=== PATIENT | male | born 1945 | race Caucasian/White ===

== ENCOUNTER 2017-09-03 07:23 | Day surgery (SDC) | payer MEDICARE, BC, SELFPAY ==
[2017-09-03 07:55] VITALS: BMI 26.1
[2017-09-03 08:02] VITALS: BP 145/85; PULSE 60; RESP 15; TEMP 36.1; O2SAT 99
[2017-09-03] MEDS: SODIUM CHLORIDE 0.9% 1,000 ML 200 ML IV (08:09)
--- NOTE | 2017-09-03 08:28 | PM.PREOP ---
Pre-operative Note Interval Note Pre-op Check: Yes History & Physical Reviewed by Physician and Yes Exam Performed Changes: No H&P completed within 30 days and has changed as indicated here:: Patient again seen and examined today. History physical examination as documented August 27, 2017 has not changed. Proceed with colonoscopy today as planned. ASA Class (for procedural sedation): II
[2017-09-03] MEDS: MIDAZOLAM 5 MG/5 ML VIAL IV (08:54)
[2017-09-03] MEDS: fentaNYL 250 MCG/5 ML INJ IV (08:55)
--- NOTE | 2017-09-03 09:07 | PM.OP.ENDO ---
Operative Date/Time/Diagnoses Date of procedure: 09/03/17 Time of procedure: 09:07 Pre-op diagnosis: Change in bowel habits Post-op diagnosis: other (Normal colon and rectum) Procedure & Clinicians Study performed: 1. Sedation per surgeon 2. Colonoscopy with random cold forceps biopsies Same procedure as scheduled: Yes Indications: 72-year-old male with recent change in bowel habits. Because of the possibility of colitis or colorectal neoplasia colonoscopy was recommended. Surgeon: Alton Douglas Procedure Notes SCOAP/Timeout: Yes Procedure in detail: After obtaining informed consent, the patient was brought to the GI suite and placed in the left lateral decubitus position on the examination table. After placement of appropriate monitors, the patient was given incremental doses of Versed and Fentanyl until an appropriate level of sedation was achieved. A time out was held per SCOAP protocol. A digital rectal examination was performed and did not reveal any masses or obstructing lesions. The colonoscope was gently passed into the patient's anus and the entire colon navigated to the level of the cecum with minimal difficulty. Terminal ileum was intubated and noted to be grossly normal. Once in the cecum, the scope was withdrawn being sure to go before and beyond all mucosal folds and prominences and get an excellent examination. The findings are noted above. At the level of the rectal vault, the scope was retroflexed and the internal anal canal was examined. The scope was straightened and air aspirated from the colon. The instrument was removed from the patient's body and the procedure was concluded. The patient was allowed to awaken from sedation without difficulty and taken to the post-anesthesia care unit in good condition. Scope withdrawal time: 14:15 min Sedation minutes: 26 Findings: internal hemorrhoids (Grade 2) and other findings (Grossly normal colon, rectum, and terminal ileum) Specimen(s): other (Random colon biopsies) Complications: none Recommendations: Colonscopy in 10 years and High fiber diet Plan for aftercare: 1. Discharge home 2. Follow up in surgery Clinic in 1 week Follow up: weeks (One week with Dr. Douglas) Disposition: same day surgery
[2017-09-03 09:17] VITALS: BP 131/80; PULSE 65; RESP 16; TEMP 36.7; O2SAT 98
== END 2017-09-03 09:40 | disposition home or self-care (01) ==
PROVIDERS: PCP Family Medicine; Visit Provider Surgery
PROC: 0DJD8ZZ Inspection of Lower Intestinal Tract, Via Natural or Artificial Opening Endoscopic (ICD-10-PCS; CPT 45378; principal; 2017-09-03 08:45)
DX: R19.4 Change in bowel habit (principal); K64.1 Second degree hemorrhoids; I10 Essential (primary) hypertension; E78.5 Hyperlipidemia, unspecified
CPT/HCPCS: 45380; 88305; 99152; 99153; J2250; J3010

== ENCOUNTER → 2017-10-18 11:37 | Outpatient (CLI) | payer MEDICARE, BC, SELFPAY ==
--- NOTE | 2017-10-18 | DI.RAD.S_ITS ---
PROCEDURE: XR CHEST 2V INDICATIONS: DYSPNEA ON EXERTION TECHNIQUE: 2 views of the chest were acquired. COMPARISON: [facility], CHEST 1 VIEW, 07/24/2006, 18:12. [facility], , CHEST 2 VIEW, 05/02/2010, 10:37. FINDINGS: Surgical changes and devices: None. Lungs and pleura: Bilateral diffuse nature prominence. No pleural effusions or pneumothorax. Lungs are clear. Mediastinum: Mediastinal contours are normal. Heart size is slightly increased. Bones and chest wall: No suspicious bony abnormalities. Soft tissues appear unremarkable. IMPRESSION: 1. Bilateral diffuse interstitial prominence suggesting interstitial lung disease. Recommend clinical correlation. 2. Mild cardiomegaly. Dictated by: Bhupendra Prado M.D. on 10/18/2017 at 14:08 Approved by: Bhupendra Prado M.D. on 10/18/2017 at 14:09
== END ==
PROVIDERS: PCP Family Medicine; Visit Provider Family Medicine
DX: R06.09 Other forms of dyspnea (principal); I51.7 Cardiomegaly
CPT/HCPCS: 71046

== ENCOUNTER → 2017-10-24 12:00 | Outpatient (CLI) | payer MEDICARE, BC, SELFPAY ==
--- NOTE | 2017-10-24 | DI.CT.S_ITS ---
PROCEDURE: CT CHEST WO CON INDICATIONS: SHORTNESS OF BREATH WITH EXERTION TECHNIQUE: Noncontrast 5 mm thick sections acquired from the pulmonary apices to the posterior costophrenic angles. 7 mm thick coronal and sagittal MIP reformats were then acquired. For radiation dose reduction, the following was used: automated exposure control, adjustment of mA and/or kV according to patient size. COMPARISON: [facility], CT, ABDOMEN/PELVIS WITH CONTRAST, 05/02/2010, 13:12. [facility], CT, ABDOMEN/PELVIS WITH CONTRAST, 06/08/2009, 14:25. [facility], CT, CT-IVP, 04/09/2009, 7:36. [facility], CR, XR CHEST 2V, 10/18/2017, 11:17. [facility], CT, THORAX WITH CONTRAST, 08/17/2006, 8:31. FINDINGS: Image quality: Excellent. Lungs and pleura: Subpleural fibrotic changes are seen, which are most prominent involving the lower lobes, right worse than left. No pneumothorax or pleural effusions are seen. The central airways are patent. Centrilobular emphysematous changes are seen. These are more prominent at the lung apices than at the lung bases. Mediastinum: Heart size is normal. Coronary artery calcifications are seen. No pericardial effusion. No mediastinal adenopathy by size criteria. Thoracic aorta and central pulmonary arteries are normal in size. Esophagus is normal in caliber. No hiatal hernia. Bones and chest wall: No suspicious bony lesions. No vertebral body compression fractures. No axillary or supraclavicular adenopathy by size criteria. Thyroid gland demonstrates no significant noncontrast abnormality. Abdomen: There is a water density cyst along the lateral aspect of the left kidney that measures 17 mm. Visualized upper abdominal solid organs and bowel loops appear normal in the absence of contrast. IMPRESSION: Subpleural fibrotic changes are seen. Centrilobular emphysematous changes are seen. Water density left renal cyst, which is clearly increased in size compared to 2011. Attention should be paid to this lesion on any future followup studies. Dictated by: Brodie Granados M.D. on 10/24/2017 at 13:04 Approved by: Brodie Granados M.D. on 10/24/2017 at 13:08
== END ==
PROVIDERS: PCP Family Medicine; Visit Provider Family Medicine
DX: R06.02 Shortness of breath (principal); N28.1 Cyst of kidney, acquired; J43.2 Centrilobular emphysema
CPT/HCPCS: 71250

== ENCOUNTER → 2017-11-16 09:07 | Outpatient (CLI) | payer MEDICARE, BC, SELFPAY ==
--- NOTE | 2017-11-16 | DI.MRI.S_ITS ---
PROCEDURE: MR HEAD/BRAIN WO CON INDICATIONS: LEFT SIDED FACIAL NUMBNESS TECHNIQUE: Non-contrast axial T1 spin echo, axial T2 fast spin echo, sagittal and axial FLAIR, coronal T2 fast spin echo, axial gradient echo, axial diffusion and ADC through the brain. COMPARISON: None. FINDINGS: Image quality: Excellent. CSF spaces: Ventricles appear symmetric in size and shape. Basal cisterns are patent. No extra-axial fluid collections. Brain: No intracranial bleeds or mass effects. There is cerebral volume loss for age. There are periventricular and deep white matter chronic small vessel ischemic changes. Brainstem appears normal. Diffusion-weighted images show no acute ischemic insults. No chronic ischemic insults. Normal intravascular flow voids are present. Skull and face: Calvarial bone marrow is normal in signal. Orbits are normal. Sinuses: Sinuses and mastoids are clear except for a right maxillary sinus the uspicious cyst or polyp. IMPRESSION: No acute intracranial signal abnormality. No evidence of acute ischemia. Nonspecific presumed age-related white matter signal changes as above. Mild right maxillary sinus disease. Dictated by: Nick Anderson M.D. on 11/16/2017 at 10:18 Approved by: Nick Anderson M.D. on 11/16/2017 at 10:21
== END ==
PROVIDERS: PCP Family Medicine; Visit Provider Family Medicine
DX: R20.0 Anesthesia of skin (principal); J32.0 Chronic maxillary sinusitis
CPT/HCPCS: 70551

== ENCOUNTER 2018-09-07 11:06 | Emergency (ER) | payer OTHER, SELFPAY ==
[2018-09-07 11:10] VITALS: BP 141/72; PULSE 80; RESP 18; TEMP 36.2; O2SAT 98
--- NOTE | 2018-09-07 11:22 | ED.SKABFB ---
HPI - Skin/Abscess/Foreign Bdy <[facility] - Last Filed: 09/07/18 13:22> General Chief complaint: Skin/Abscess/Foreign Body Stated complaint: L hand swelling possibly bitten Time Seen by Provider: 09/07/18 11:11 Source: patient Mode of arrival: ambulatory Limitations: no limitations History of Present Illness HPI narrative: The patient is a 73-year-old male former smoker with history of pulmonary fibrosis who presents with a chief complaint of possible insect sting to his left hand. He states that his above his left 5th digit. He noticed it yesterday. He is concerned about a possible bite parker below his 5th finger. He states there is some pinkness and swelling. He states it itches terribly. He has taken Benadryl with some relief. He states he has normal range of motion for his left hand. Related Data Home Medications Medication Instructions Recorded Confirmed atorvastatin 40 mg tablet 40 mg PO DAILY 08/27/17 09/03/17 ibuprofen 200 mg tablet 200 mg PO QID PRN 08/27/17 09/03/17 metoprolol tartrate 25 mg tablet 25 mg PO ONCE tab 08/27/17 09/03/17 Previous Rx's Medication Instructions Recorded prednisone 50 mg PO DAILY #4 tab 09/07/18 Allergies Allergy/AdvReac Type Severity Reaction Status Date / Time latex Allergy rash Verified 08/27/17 15:09 Review of Systems <[facility] - Last Filed: 09/07/18 13:22> Review of Systems GENERAL: Denies chills, fatigue, malaise, fever, sweats. HEENT: Denies sinus pain, ear pain, sore throat, difficulty swallowing, dizziness. RESPIRATORY: Denies dyspnea, cough, wheezing, hemoptysis, sputum. CARDIOVASCULAR: Denies chest pain, palpitations, orthopnea, edema, GASTROINTESTINAL: Denies nausea, vomiting, abdominal pain, diarrhea, constipation, melena. : Denies dysuria, frequency, incontinence, hematuria, urinary retention. MUSCULOSKELETAL: denies weakness, joint pain, or bony pain SKIN: See HPI NEUROLOGIC: Denies weakness, headache, numbness, change in speech, confusion, seizures, incoordination. PSYCHIATRIC: No concerning psychosocial issues. 12 point review of systems is negative except for those stated above PFSH <MilagroJAX Esquivel - Last Filed: 09/07/18 13:22> Medical History Hemangioma of other sites (Acute) History of anal fissures (Acute) Varicocele (Acute) HTN (hypertension) (Chronic) Hyperlipidemia (Chronic) Surgical History History of appendectomy (Acute) History of colonoscopy (Acute) History of inguinal hernia repair (Acute) History of radical dissection of right side of neck (Acute) History of repair of rotator cuff (Acute) Status post anal fissurectomy (Acute) History of radical neck dissection (Resolved) Family History Father Cancer Social History household members: spouse Smoking Status: Never smoker alcohol intake: current Family History Father Cancer Social History household members: spouse Smoking Status: Never smoker alcohol intake: current Exam <JAX Otto - Last Filed: 09/07/18 13:22> Narrative Exam Narrative: GENERAL: This is a well-nourished, well-developed patient, no acute distress HEAD: Atraumatic. Normocephalic. No temporal or scalp tenderness. EYES: Pupils equal round and reactive. Extraocular motions intact. No scleral icterus. No injection or drainage. ENT: Nose without bleeding, purulent drainage or septal hematoma. Throat without erythema, tonsillar hypertrophy or exudate. Uvula midline. Airway patent. NECK: Trachea midline. No JVD or lymphadenopathy. Supple, nontender, no meningeal signs. CARDIOVASCULAR: Regular rate and rhythm RESPIRATORY: Coarse bilaterally auscultation. Breath sounds equal bilaterally. No wheezes, rales, or rhonchi. No cough. No accessory muscle use. No increased respiratory effort. EXTREMITIES: Full range of motion noted left hand. Positive radial pulse. Capillary refill less than 2 seconds. BACK: Nontender without deformity or crepitance. No flank tenderness. NEURO: AOx3. SKIN: 2 mm possible bite parker noted distal to left 5th finger on side pain. Surrounding pinkness and swelling noted to 1 in above wrist. No warmth to palpation. No pain to palpation. No drainage. No obvious bleeding. Initial Vital Signs Initial Vital Signs: Vital Signs Temperature 97.1 F L 09/07/18 11:10 Pulse Rate 80 09/07/18 11:10 Respiratory Rate 18 09/07/18 11:10 Blood Pressure 141/72 H 09/07/18 11:10 Pulse Oximetry 98 09/07/18 11:10 <Sandhya Saunders DO - Last Filed: 09/15/18 20:24> Initial Vital Signs Initial Vital Signs: Vital Signs Temperature 97.1 F L 09/07/18 11:10 Pulse Rate 80 09/07/18 11:10 Respiratory Rate 18 09/07/18 11:10 Blood Pressure 141/72 H 09/07/18 11:10 Pulse Oximetry 98 09/07/18 11:10 Course <JAX tOto - Last Filed: 09/07/18 13:22> Orders Ordered: Discontinued Medications Prednisone (Deltasone) 40 mg PO NOW ONE Stop: 09/07/18 11:25 Last Admin: 09/07/18 11:35 Dose: 40 mg Vital Signs - 8 hr 09/07/18 11:10 Temperature 97.1 F L Pulse Rate 80 Respiratory Rate 18 Blood Pressure 141/72 H Pulse Oximetry 98 <Sandhya Saunders DO - Last Filed: 09/15/18 20:24> Orders Ordered: Discontinued Medications Prednisone (Deltasone) 40 mg PO NOW ONE Stop: 09/07/18 11:25 Last Admin: 09/07/18 11:35 Dose: 40 mg Vital Signs - 8 hr 09/07/18 11:10 Temperature 97.1 F L Pulse Rate 80 Respiratory Rate 18 Blood Pressure 141/72 H Pulse Oximetry 98 MDM - Skin/Abscess/Foreign Bdy <JAX Otto - Last Filed: 09/07/18 13:22> MDM Narrative Medical decision making narrative: The patient is a 73-year-old male who presents for chief complaint of possible bug bite to his hand. We discussed the possibility of a localized reaction to an insect exposure versus cellulitis. However his hand is more itchy than red, he does not have any signs of systemic illness, and believes it is more reaction to an insect sting from yesterday. We discussed a small trial of prednisone. Discussed continued use of Benadryl and/or Pepcid. Discussed at length follow up with PCP. Discussed coming back to the ER for any acute concerns such as difficulty breathing etc. Patient was hemodynamically stable throughout stay in the emergency department, well and nontoxic appearing. No questions or concerns upon discharge. Discussed return precautions as well as PCP follow-up. Discharge Plan Departure Patient Disposition: Home Clinical Impression: Local reaction to insect sting Qualifiers: Encounter type: initial encounter Injury intent: accidental or unintentional Qualified Code(s): T63.481A - Toxic effect of venom of other arthropod, accidental (unintentional), initial encounter Discharge Date/Time: 09/07/18 11:46 Interventions: ED Discharge Assessment Last Done: 09/07/18 11:46 Instructions: How to Care for an Insect Bite or Sting, Insect Bites (Alternative Therapy), DI for Insect Bites and Stings Activity Restrictions/Additional Instructions: I have given you a prescription of prednisone to help with your localized allergic reaction. You can also contribute new medications such as Benadryl and Pepcid to help with the itching. Please follow up with primary care provider. Please monitor for pain, fever vomiting or diarrhea. These are signs that you might have a bacterial reaction rather than a localized allergic reaction. Prescriptions: New prednisone 50 mg tablet 50 mg PO DAILY Qty: 4 RF: 0 No Action metoprolol tartrate 25 mg tablet 25 mg PO ONCE RF: 0 atorvastatin 40 mg tablet 40 mg PO DAILY RF: 0 ibuprofen 200 mg tablet 200 mg PO QID PRN (Reason: Pain, Moderate) RF: 0 Referrals: Rosalee Harp MD [Primary Care Provider] - <Sandhya Saunders DO - Last Filed: 09/15/18 20:24> Cosign ED Attending Marielleature Attestation: I was immediately available in the department for consultation. Documentation has been reviewed. I agree with assessment and plan.
[2018-09-07] MEDS: predniSONE 20 MG TABLET 40 MG PO (11:35)
== END 2018-09-07 11:46 | disposition home or self-care (01) ==
PROVIDERS: Emergency Provider Nurse Practitioner Family; PCP Student in an Organized Health Care Education/Training Program
DX: T63.481A Toxic effect of venom of other arthropod, accidental (unintentional), initial encounter (principal)
CPT/HCPCS: 99282; 99283

== ENCOUNTER → 2018-09-24 08:09 | Outpatient (CLI) | payer OTHER, SELFPAY ==
--- NOTE | 2018-09-24 | DI.MRI.S_ITS ---
PROCEDURE: MR KNEE LT WO CON INDICATIONS: Unspecified internal derangement of left knee TECHNIQUE: Noncontrast sagittal PD fast spin echo and T2 fast spin echo with fat saturation, sagittal 3-D FLASH with fat saturation; coronal T1 spin echo and PD fast spin echo with fat saturation, and axial PD fast spin echo with fat saturation through the knee. COMPARISON: None. FINDINGS: Image quality: Excellent. Menisci: Medial meniscus is intact. Mild fraying/truncation of the free margin of the body of the lateral meniscus, image 21 series 10 although seen on one pulse sequence only. Cruciate ligaments: The anterior and posterior cruciate ligaments appear intact. Medial structures: The medial collateral ligament appears intact. The posterior oblique ligament, semimembranosus tendon insertions, oblique popliteal ligament, and meniscocapsular junction appear intact. Visualized portions of the pes anserinus tendons appear normal. No abnormal bursal fluid. Lateral structures: The lateral collateral ligament demonstrates thickening and intrasubstance signal change in keeping with low grade sprain, statistically chronic, although technically age indeterminate. The biceps femoris tendon appears intact. Popliteus tendon grossly unremarkable. Iliotibial band appears intact. Anterior structures: Prepatellar and superficial infrapatellar subcutaneous edema/fluid. The quadriceps and patellar tendons appear intact. Patellar alignment is normal. No femoral trochlear dysplasia or ventral trochlear prominence. No edema in the infrapatellar fat pad. Bones and cartilage: No bone marrow contusions or fractures. The cartilage of the medial and lateral femorotibial compartments, as well as the patellofemoral compartment, appears normal in thickness. Joint space: No pathologic joint effusion. Small Ortiz's cyst measuring 2 cm in cephalocaudad dimension. No specific evidence of intra-articular loose body. IMPRESSION: Mild frayed appearance of the free margin the body lateral meniscus although does not meet strict MR criteria for tear recommend clinical correlation. Prepatellar and superficial infrapatellar subcutaneous edema/fluid. Small Ortiz's cyst. Dictated by: Nick Anderson M.D. on 09/24/2018 at 11:13 Approved by: Nick Anderson M.D. on 09/24/2018 at 11:17
== END ==
PROVIDERS: PCP Student in an Organized Health Care Education/Training Program; Visit Provider Orthopaedic Surgery
DX: M71.22 Synovial cyst of popliteal space [Baker], left knee (principal); R60.0 Localized edema
CPT/HCPCS: 73721

== ENCOUNTER 2018-11-05 07:50 | Day surgery (SDC) | payer OTHER, SELFPAY ==
[2018-11-05] MEDS: PROPARACAINE 0.5% OPHTH SOL 2 DROPS EYE-OP (08:17)
[2018-11-05] MEDS: CATARACT EYE COMPOUND (10 DROPS/SYRINGE) 3 DROPS EYE-OP (08:20)
[2018-11-05 08:21] VITALS: BMI 25.2
[2018-11-05 08:25] VITALS: BP 109/67; PULSE 60; RESP 16; TEMP 36.4; O2SAT 98
--- NOTE | 2018-11-05 09:04 | PM.PREOP ---
Pre-operative Note Interval Note History & Physical reviewed/Exam performed by Physician: No Changes to H&P: No
--- NOTE | 2018-11-05 09:05 | PM.OP.1 ---
Operative Date/Time/Diagnoses Pre-op diagnosis: Nuclear cataract right eye Procedure & Clinicians Procedure: Cataract Surgery Same procedure as scheduled: Yes Surgeon: Fab Pitts Anesthesia Type: MAC +/- and Sedation Operative Notes Procedure in detail: Patient brought to the operating suite. Tetracaine drops placed in the right eye. Patient was prepped and draped in sterile manner. Wire lid speculum was placed in the eye. Betadine drops were placed on the eye. This was irrigated. Lidocaine jelly was placed on the eye. A paracentesis port was created with a side-port blade. 0.1 mL 1% preservative free lidocaine was injected into the anterior chamber. The anterior chamber was deepened with viscoelastic. 2.6 mm keratome was used to create a temporal clear corneal incision. Cystotome and Utrata forceps were used to create continuous tear capsulorrhexis. Balanced salt solution was used to hydro dissect the nucleus. The phacoemulsification handpiece was inserted and the nucleus was removed using the stop and chop technique. The irrigation aspiration handpiece was inserted and the remaining cortex was removed. Anterior chamber was deepened with viscoelastic. An Carrington ZCB00 intraocular lens with a power of 22.0 was injected into the capsular bag. Irrigation aspiration handpiece was inserted and the remaining viscoelastic was removed. Incision was hydrated with balanced salt solution and found to be leak free with pressure with Weck-Pema sponges. 0.1 mL Vigamox injected anterior chamber. 0.3 mL Kenalog 10 mg was injected subconjunctivally. Lid speculum was removed. The patient left the operating room in excellent condition. Complications: none Post-operative Condition: stable Disposition: same day surgery
--- NOTE | 2018-11-05 09:22 | SUR.OPER ---
Supine on eye stretcher, head on extension cradle secured with tape. Arms tucked at sides with blanket. Pillow under knees.
[2018-11-05] MEDS: BALANCED SALT IRRIG SOLN NO.2 500 ML, EPINEPHrine 1 MG IRR (09:24)
[2018-11-05] MEDS: PHENYLEPHRINE/LIDOCAINE VIAL (OR) 0.2 ML EYE-OP (09:25)
[2018-11-05] MEDS: TRIAMCINOLONE 50 MG/5 ML VIAL INJ (09:26)
[2018-11-05] MEDS: MOXIFLOXACIN INJ 5 MG/ML VIAL EYE-OP (09:27)
[2018-11-05 10:34] VITALS: BP 101/65; PULSE 59; RESP 12; TEMP 36.3; O2SAT 99
== END 2018-11-05 09:43 | disposition home or self-care (01) ==
PROVIDERS: PCP Student in an Organized Health Care Education/Training Program; Visit Provider Ophthalmology
PROC: (CPT 66984; principal; 2018-11-05 09:45)
DX: H25.11 Age-related nuclear cataract, right eye (principal)
CPT/HCPCS: 66984; J0171; J2250; J3301

== ENCOUNTER 2018-11-12 07:24 | Day surgery (SDC) | payer OTHER, SELFPAY ==
[2018-11-12] MEDS: PROPARACAINE 0.5% OPHTH SOL 2 DROPS EYE-OP (08:01)
[2018-11-12] MEDS: CATARACT EYE COMPOUND (10 DROPS/SYRINGE) 3 DROPS EYE-OP ×3 (08:03→08:17)
[2018-11-12 08:13] VITALS: BP 112/70; PULSE 62; RESP 16; TEMP 36.4; O2SAT 98; BMI 25.0
--- NOTE | 2018-11-12 08:59 | PM.PREOP ---
Pre-operative Note Interval Note History & Physical reviewed/Exam performed by Physician: No Changes to H&P: No
--- NOTE | 2018-11-12 08:59 | PM.OP.1 ---
Operative Date/Time/Diagnoses Pre-op diagnosis: Nuclear Cataract Left eye Post-op diagnosis: same Procedure & Clinicians Surgeon: Fab Pitts Anesthesia Type: MAC +/- and Sedation Operative Notes Procedure in detail: Patient brought to the operating suite. Tetracaine drops placed in the left eye. Patient was prepped and draped in sterile manner. Wire lid speculum was placed in the eye. Betadine drops were placed on the eye. This was irrigated. Lidocaine jelly was placed on the eye. A paracentesis port was created with a side-port blade. 0.1 mL 1% preservative free lidocaine was injected into the anterior chamber. The anterior chamber was deepened with viscoelastic. 2.6 mm keratome was used to create a temporal clear corneal incision. Cystotome and Utrata forceps were used to create continuous tear capsulorrhexis. Balanced salt solution was used to hydro dissect the nucleus. The phacoemulsification handpiece was inserted and the nucleus was removed using the stop and chop technique. The irrigation aspiration handpiece was inserted and the remaining cortex was removed. Anterior chamber was deepened with viscoelastic. An Carrington ZCB00 intraocular lens with a power of 22.0 was injected into the capsular bag. Irrigation aspiration handpiece was inserted and the remaining viscoelastic was removed. Incision was hydrated with balanced salt solution and found to be leak free with pressure with Weck-Pema sponges. 0.1 mL Vigamox injected anterior chamber. 0.3 mL Kenalog 10 mg was injected subconjunctivally. Lid speculum was removed. The patient left the operating room in excellent condition. Complications: none Post-operative Condition: stable Disposition: same day surgery
[2018-11-12] MEDS: PHENYLEPHRINE/LIDOCAINE VIAL (OR) 0.2 ML EYE-OP (09:14)
[2018-11-12] MEDS: MOXIFLOXACIN 0.5% OPHTH 60 DROPS/BOTTLE DROPS EYE-BOTH (09:15)
[2018-11-12] MEDS: LIDOCAINE JELLY 2% 5 ML 1 APPLIC TOP (09:15)
[2018-11-12] MEDS: TRIAMCINOLONE 50 MG/5 ML VIAL INJ (09:15)
[2018-11-12] MEDS: CHONDROIDTIN/SOD HYALURONATE 1.05 ML SYRINGE INTRAOCULA (09:15)
[2018-11-12] MEDS: TETRACAINE 0.5% OPHTH DROPS 4 ML 2 DROPS EYE-OP (09:16)
[2018-11-12] MEDS: BALANCED SALT IRRIG SOLN NO.2 500 ML, EPINEPHrine 1 MG IRR (09:16)
[2018-11-12 09:33] VITALS: BP 102/66; PULSE 59; RESP 15; TEMP 36.4; O2SAT 99
== END 2018-11-12 09:50 ==
LOC: OR 07:28
PROVIDERS: Family Provider Student in an Organized Health Care Education/Training Program; PCP Student in an Organized Health Care Education/Training Program; Visit Provider Ophthalmology
PROC: (CPT 66984; principal; 2018-11-12 09:15)
DX: H25.12 Age-related nuclear cataract, left eye (principal)
CPT/HCPCS: 66984; J0171; J2250; J3010; J3301

== ENCOUNTER → 2019-07-16 15:23 | Outpatient (CLI) | payer OTHER, SELFPAY ==
--- NOTE | 2019-07-16 | DI.RAD.S_ITS ---
PROCEDURE: XR CHEST 2V INDICATIONS: Chest pain, unspecified TECHNIQUE: 2 views of the chest were acquired. COMPARISON: [facility], CT, CT CHEST WO CON, 10/24/2017, 11:57. [facility], CR, XR CHEST 2V, 10/18/2017, 11:17. FINDINGS: Surgical changes and devices: None. Lungs and pleura: Lungs are abnormal with relative pulmonary hyperexpansion and the pattern of interstitial lung disease previously present with a degree of mild lung base fibrotic change previously also seen on CT scanning from October of 2017.. No pleural effusions or pneumothorax. Mediastinum: Mediastinal contours are normal. Heart size is normal. Bones and chest wall: No suspicious bony abnormalities. Soft tissues appear unremarkable. IMPRESSION: Suspect long-standing smoking history and COPD, no definite source of acute chest pain found. Chronic interstitial prominence. Dictated by: Davi Florez M.D. on 07/16/2019 at 16:42 Approved by: Davi Florez M.D. on 07/16/2019 at 16:44
== END ==
PROVIDERS: Family Provider Student in an Organized Health Care Education/Training Program; PCP Student in an Organized Health Care Education/Training Program; Referring Provider Student in an Organized Health Care Education/Training Program; Visit Provider Student in an Organized Health Care Education/Training Program
DX: R07.9 Chest pain, unspecified (principal); J84.9 Interstitial pulmonary disease, unspecified
CPT/HCPCS: 71046

== ENCOUNTER → 2019-08-24 11:35 | Outpatient (CLI) | payer OTHER, SELFPAY ==
[2019-08-25 13:57] LABS: COVID19 Sendout Not Detected (Not Detect)
== END ==
PROVIDERS: Family Provider Student in an Organized Health Care Education/Training Program; PCP Student in an Organized Health Care Education/Training Program; Visit Provider Physician Assistant
DX: Z01.812 Encounter for preprocedural laboratory examination (principal)
CPT/HCPCS: 87635

== ENCOUNTER → 2019-09-23 12:32 | Outpatient (CLI) | payer OTHER, SELFPAY | PROVIDERS: Family Provider Student in an Organized Health Care Education/Training Program; PCP Student in an Organized Health Care Education/Training Program; Referring Provider Student in an Organized Health Care Education/Training Program; Visit Provider Student in an Organized Health Care Education/Training Program | DX: M85.852 Other specified disorders of bone density and structure, left thigh (principal); R00.1 Bradycardia, unspecified; R06.09 Other forms of dyspnea | CPT/HCPCS: 77080 ==

== ENCOUNTER → 2019-10-11 11:52 | Outpatient (CLI) | payer OTHER, SELFPAY ==
[2019-10-11 14:05] LABS: Alanine Aminotransferase 20 IU/L (<50); Albumin 4.1 g/dL (3.5-5.0); Albumin Globulin Ratio 1.2 (1.0-2.8); Alkaline Phosphatase 76 U/L (38-126); Aspartate Aminotransferase 30 IU/L (17-59); BUN Creatinine Ratio 20.4 (6-22); Bilirubin Total 0.8 mg/dL (0.2-1.3); Blood Urea Nitrogen 20 mg/dL (9-20); Carbon Dioxide 34 mmol/L (22-32); Chloride 101 mmol/L (98-107); Estimated Glomerular Filt Rate > 60.0 mL/min (>60); Globulin 3.4 g/dL (1.7-4.1); Glucose 87 mg/dL (80-110); HEMOLYSIS < 15 (0-50); Potassium 4.1 mmol/L (3.4-5.1); Sodium 137 mmol/L (137-145); Total Protein 7.5 g/dL (6.3-8.2)
== END ==
PROVIDERS: Family Provider Student in an Organized Health Care Education/Training Program; PCP Student in an Organized Health Care Education/Training Program; Referring Provider Internal Medicine Cardiovascular Disease; Visit Provider Internal Medicine Cardiovascular Disease
DX: R00.1 Bradycardia, unspecified (principal)
CPT/HCPCS: 36415; 80053

== ENCOUNTER → 2020-06-08 09:15 | Outpatient (CLI) | payer OTHER, SELFPAY ==
[2020-06-08 10:27] LABS: COVID19 -Nasal RAPID Negative (Negative)
== END ==
PROVIDERS: Family Provider Student in an Organized Health Care Education/Training Program; PCP Student in an Organized Health Care Education/Training Program; Visit Provider Specialist
DX: Z20.822 Contact with and (suspected) exposure to COVID-19 (principal)
CPT/HCPCS: 87635; C9803

== ENCOUNTER → 2020-09-13 08:57 | Outpatient (CLI) | payer OTHER, SELFPAY ==
[2020-09-13 09:21] LABS: COVID19 -Nasal RAPID Negative (Negative)
== END ==
PROVIDERS: Family Provider Student in an Organized Health Care Education/Training Program; PCP Student in an Organized Health Care Education/Training Program; Visit Provider Specialist
DX: Z20.822 Contact with and (suspected) exposure to COVID-19 (principal)
CPT/HCPCS: 87635; C9803

== ENCOUNTER → 2020-12-08 09:49 | Outpatient (CLI) | payer OTHER, SELFPAY ==
[2020-12-08 11:33] LABS: COVID19 -Nasal RAPID Negative (Negative)
== END ==
PROVIDERS: Family Provider Student in an Organized Health Care Education/Training Program; PCP Student in an Organized Health Care Education/Training Program; Visit Provider Specialist
DX: Z20.822 Contact with and (suspected) exposure to COVID-19 (principal); Z01.812 Encounter for preprocedural laboratory examination
CPT/HCPCS: 87635; C9803

== ENCOUNTER → 2021-06-28 15:09 | Outpatient (ROUT) | payer MEDICARE, SELFPAY ==
[2021-06-28 16:20] LABS: COVID-19 CEPHEID PCR (VTM/NP) Negative (Negative)
== END ==
PROVIDERS: Family Provider Student in an Organized Health Care Education/Training Program; PCP Student in an Organized Health Care Education/Training Program; Visit Provider Student in an Organized Health Care Education/Training Program
DX: Z20.822 Contact with and (suspected) exposure to COVID-19 (principal)
CPT/HCPCS: U0003; U0005

== ENCOUNTER → 2021-08-18 11:07 | Outpatient (CLI) | payer MEDICARE, SELFPAY | PROVIDERS: Family Provider Student in an Organized Health Care Education/Training Program; PCP Family Medicine; Referring Provider Family Medicine; Visit Provider Family Medicine | DX: M85.852 Other specified disorders of bone density and structure, left thigh (principal); M85.851 Other specified disorders of bone density and structure, right thigh | CPT/HCPCS: 77080 ==

== ENCOUNTER → 2021-11-07 10:21 | Outpatient (ROUT) | payer MEDICARE, SELFPAY ==
[2021-11-07 13:20] LABS: COVID-19 CEPHEID PCR (VTM/NP) Negative (Negative)
== END ==
PROVIDERS: Family Provider Student in an Organized Health Care Education/Training Program; PCP Family Medicine; Visit Provider Family Medicine
DX: J84.9 Interstitial pulmonary disease, unspecified (principal); J43.9 Emphysema, unspecified
CPT/HCPCS: U0003; U0005

== ENCOUNTER → 2021-12-23 15:35 | Outpatient (CLI) | payer MEDICARE, SELFPAY ==
--- NOTE | 2021-12-23 15:36 | DI.MRI.S_ITS ---
PROCEDURE: MR LOWER LEG RT WO CON INDICATIONS: Stress fracture, right tibia, TECHNIQUE: Noncontrast coronal and sagittal T1 spin echo and STIR; axial T1 spin echo and T2 fast spin echo with fat saturation through the right lower leg. COMPARISON: None. FINDINGS: Image quality: Excellent. Bones: Periosteal edema along anterior aspect of proximal to mid tibial shaft is seen. There is no marrow edema. No cortical erosion or destruction. No fractures lines or intra-osseous lesions. Soft tissues: There is edema involving medial head of distal gastrocnemius muscle. No other muscle signal abnormalities. No soft tissue mass or drainable fluid collection. IMPRESSION: 1. Finding is consistent with Jeanne grade 1 stress injuries involving anterior cortex of proximal to mid tibial shaft. No marrow edema. No cortical erosion or destruction. 2. Suggestion of mild muscle strain involving distal medial head of gastrocnemius muscle. No discrete soft tissue mass or fluid collection. Dictated by: Luca Calvin M.D. on 12/23/2021 at 20:57 Approved by: Luca Calvin M.D. on 12/23/2021 at 21:12
== END ==
PROVIDERS: Family Provider Student in an Organized Health Care Education/Training Program; PCP Family Medicine; Referring Provider Orthopaedic Surgery Foot and Ankle Surgery; Visit Provider Orthopaedic Surgery Foot and Ankle Surgery
DX: M84.361A Stress fracture, right tibia, initial encounter for fracture (principal); X58.XXXA Exposure to other specified factors, initial encounter
CPT/HCPCS: 73718